=== PATIENT | female | born 1995 | race American Indian/Alaskan Native ===

== ENCOUNTER 2017-02-15 06:48 | Inpatient (IN) | payer MEDICAID ==
--- NOTE | 2017-02-15 09:22 | Ultrasound Report ---
OB LIMITED INDICATION: Leaking fluid. COMPARISON: None similar at this institution. TECHNIQUE: Transabdominal grayscale ultrasound with Doppler interrogation. Gestation: Street Position: Cephalic Amniotic Fluid: Decreased (< 7 cm) BRYSON = 5.5 cm Heart Rate: 125 BPM
[2017-02-15] MEDS ORDERED: ePHEDrine SULFATE IV PRN (11:00)
[2017-02-15] MEDS ORDERED: BRETHINE IVP PRN (11:00)
[2017-02-15] MEDS ORDERED: XYLOCAINE 2% INFILTRATI ONE (11:00)
[2017-02-15] MEDS ORDERED: STADOL IV PRN (11:00)
[2017-02-15] MEDS ORDERED: PITOCin/NS 30 UNIT/500ML 30 UNITS/500 ML BAG IV SCH (11:00)
[2017-02-15] MEDS ORDERED: PITOCin/NS 20 UNIT/1000ML DRIP 20 UNITS/1,000 ML BAG IV SCH (11:00)
[2017-02-15] MEDS ORDERED: MINERAL OIL PO PRN (11:00)
[2017-02-15] MEDS ORDERED: LACTATED RINGERS 1,000 ML IV SCH (11:00)
[2017-02-15] MEDS ORDERED: ZOFRAN IV PRN (11:24)
[2017-02-15 11:30] LABS: Hematocrit 36.8 % (30.3-42.9); Hemoglobin 12.2 gm/dl (10.1-14.3); Mean Corpuscular HGB Conc 33 % (30-34); Mean Corpuscular Hemoglobin 30 pg (28-32); Mean Corpuscular Volume 89 fl (79-97); Red Blood Count 4.13 M/mm3 (3.65-5.03); Red Cell Distribution Width 16.8 % (13.2-15.2); White Blood Count 8.7 K/mm3 (4.5-11.0)
[2017-02-15] MEDS ORDERED: BRETHINE SUB-Q PRN (11:30)
--- NOTE | 2017-02-15 11:32 | History and Physical Report ---
History of Present Illness Date of examination: 02/15/17 Date of admission: 02/15/17 06:49 Chief complaint: patient came to triage with c/o ctx and leaking x2 days. no amniotic fluid noted from vagina, BRYSON low @5.5cms, plans for admission and IOL. History of present illness: EDC Confirmation: 02/15/2017 Past History : 1 Term Births: 0 Premature Births: 0 Living Children: 0 Para: 0 Mult. Births: 0 Prev : 0 Prev. attempt? 0 Aborta: 0 Elect. Ab: 0 Spont. Ab: 0 Ectopics: 0 Past Medical History: Asthma Past Surgical History: Negative Past Surgical History Family History Summary: Other family member - Has No Family History of Ovarvian Cancer - Entered On: Other family member - Has No Family History of Colon Cancer - Entered On: 2016 Other family member - Has Family History of Hypertension - Entered On: 09/11/2016 Other family member - Has Family History of Diabetes - Entered On: 09/11/2016 Other family member - Has Family History Breast Cancer - Entered On: 09/11/2016 Social History: Patient is single unemployed Risk Factors: Smoked Tobacco Use: Never smoker Drug use: yes Substance: marijuana Alcohol use: yes Drinks per day: social Dietary Counseling: pn yes Past Medical History 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 of genital herpes: no Partner hx. of genital herpes: no Genetic History Congenital Heart Defect: Mom: no Dad: no [place] Disease: Mom: no Dad: no Thalassemia Mom: no Dad: no Neural Tube Defect Mom: no Dad: no Down's Syndrome Mom: no Dad: no Justin-Sachs Mom: no Dad: no Sickle Cell Disease/Trait Mom: no Dad: no Hemophilia Mom: no Dad: no Muscular Dystrophy Mom: no Dad: no Cystic Fibrosis Mom: no Dad: no [place] Chorea Mom: no Dad: no Mental Retardation Mom: no Dad: no Fragile X Mom: no Dad: no Other Genetic/Chromosomal Disorder Mom: no Dad: no Child w/other defect Mom: no Dad: no Enviromental Exposures Xray Exposure: no Medication, drug, or alcohol use since LMP: no Chemical/Other Exposure: no Exposure to Cat Liter: no Hx of Parvovirus (Fifth Disease): no Active Medications (reviewed today): FORMULA 27-1 MG ORAL TABS ( VIT-FE FUMARATE-FA) 1 po q day as directed Current Allergies (reviewed today): No known allergies Past History Past Medical History: asthma Past Surgical History: no surgical history - Obstetrical History Expected Date of Delivery: 02/15/17 Actual Gestation: 40 Week(s) 0 Day(s) : 1 Para: 0 Hx # Term Pregnancies: 0 Number of Pregnancies: 0 Spontaneous Abortions: 0 Induced : 0 Number of Living Children: 0 Medications and Allergies Allergies Allergy/AdvReac Type Severity Reaction Status Date / Time No Known Allergies Allergy Verified 02/15/17 10:40 Home Medications Medication Instructions Recorded Confirmed Last Taken Type No Known Home Medications [No 02/15/17 02/15/17 Unknown History Reported Home Medications] Active Meds: Active Medications Butorphanol Tartrate (Stadol) 2 mg IV Q2H PRN PRN Reason: Pain , Severe (7-10) Ephedrine Sulfate (Ephedrine Sulfate) 10 mg IV Q2M PRN PRN Reason: Hypotension Stop: 02/16/17 10:59 Fentanyl (Sublimaze) 100 mcg IV Q2H PRN PRN Reason: Labor Pain Lactated Ringer's (Lactated Ringers) 1,000 mls @ 125 mls/hr IV DIRECT ADIA Oxytocin/Sodium Chloride (Pitocin/Ns 20 Unit/1000ml Drip) 20 units in 1,000 mls @ 125 mls/hr IV DIRECT ADIA Oxytocin/Sodium Chloride (Pitocin/Ns 30 Unit/500ml) 30 units in 500 mls @ 1 mls /hr IV TITR ADIA; 1 MILLIUNITS/MIN PRN Reason: Protocol Mineral Oil (Mineral Oil) 30 ml PO QHS PRN PRN Reason: Constipation Terbutaline Sulfate (Brethine) 0.25 mg SUB-Q ONCE PRN PRN Reason: Hyperstimulation/Hypertonicity Stop: 02/16/17 11:29 Terbutaline Sulfate (Brethine) 0.25 mg IVP ONCE PRN PRN Reason: Hyperstimulation/Hypertonicity Stop: 02/16/17 10:59 Review of Systems All systems: negative - Vital Signs Vital signs: Vital Signs Pulse BP 82 129/84 02/15/17 07:04 02/15/17 07:04 Temp Pulse Resp BP Pulse Ox 83 129/84 97 02/15/17 11:23 02/15/17 07:04 02/15/17 11:23 - Physical Exam Breasts: Positive: normal Cardiovascular: Regular rate Lungs: Positive: Clear to auscultation, Normal air movement Abdomen: Positive: normal appearance, soft, normal bowel sounds Genitourinary (Female): Positive: normal external genitalia, normal perenium Vulva: both: normal Vagina: Positive: normal moisture (Neg Pooling, Neg Ferning ) Uterus: Positive: normal size, normal contour Anus/Rectum: Positive: normal perianal skin Extremities: Positive: normal - Obstetrical FHR: auscultation normal, category 1 Uterine Contraction Monitor Mode: External Cervical Dilatation: 1 Cervical Effacement Percentage: 50 station: -2 Uterine Contraction Frequency (min): irregular Uterine Contraction Pattern: Irregular Uterine Tone Measurement Phase: Resting Results Result Diagrams: 02/15/17 10:45 All other labs normal. Assessment and Plan 21y/o @ 40 weeks, Oligohydramnios - BRYSON 5.5cm (Neg pooling on spec exam, also neg fern). dr. Call consulted, Plan for serial IOL with cervidil. orders in chart, discussed plan of care with patient and family. All questions addressed. - Patient Problems (1) 40 weeks gestation of Current Visit: Yes Status: Acute (2) Oligohydramnios in powers in third trimester Current Visit: Yes Status: Acute
[2017-02-15 11:42] LABS: Platelet Count 137 K/mm3 (140-440)
[2017-02-15] MEDS ORDERED: CERVIDIL VG ONE (13:00)
[2017-02-15] MEDS: SUBLIMAZE IV PRN (21:11)
[2017-02-16] MEDS: LACTATED RINGERS 1,000 ML IV SCH ×4 (01:38→17:28)
[2017-02-16] MEDS ORDERED: AMBIEN PO PRN (02:42)
[2017-02-16] MEDS ORDERED: PITOCin/NS 30 UNIT/500ML 30 UNITS/500 ML BAG IV SCH (03:00)
[2017-02-16] MEDS ORDERED: PITOCin/NS 30 UNIT/500ML 30,000 MILLIUNITS/500 ML BAG IV ONE (07:10)
--- NOTE | 2017-02-16 09:50 | Progress Note ---
Assessment and Plan - Patient Problems (1) 40 weeks gestation of Current Visit: Yes Status: Acute Plan to address problem: Patient did not tolerate exam well, pelvis difficult to assess appropriately however seems to be adequate for EFW of ~6-7#. Plan of care explained, questions answered, will start IVF bolus for epidural and will pitocin. Patient voiced understanding and agrees with plan of care. (2) Oligohydramnios in powers in third trimester Current Visit: Yes Status: Acute Subjective - Subjective Date of service: 02/16/17 Principal diagnosis: IUP@40weeks; oligohydramnios, induction Interval history: 21YOF recieved cervidil last pm, however had tachysystole, cervidil removed and she was started on low dose pitocin overnight, this am no complaint , she has showered and eaten, +fm, no UC's, leaking or bleeding. Patient reports: movement normal, no new complaints, no loss of fluid, no vaginal bleeding, no contractions Objective - Vital Signs Vital Signs: Vital Signs - 12hr 02/15/17 02/15/17 02/15/17 22:44 23:13 23:17 Temperature 99 F Pulse Rate 83 75 75 Respiratory 20 Rate Blood Pressure 119/88 122/85 122/85 O2 Sat by Pulse Oximetry 02/15/17 02/15/17 02/15/17 23:19 23:24 23:25 Temperature Pulse Rate 90 99 H 104 H Respiratory Rate Blood Pressure O2 Sat by Pulse 96 95 94 Oximetry 02/15/17 02/15/17 02/15/17 23:29 23:34 23:39 Temperature Pulse Rate 103 H 112 H 106 H Respiratory Rate Blood Pressure O2 Sat by Pulse 95 95 96 Oximetry 02/15/17 02/15/17 02/15/17 23:44 23:49 23:54 Temperature Pulse Rate 99 H 102 H 98 H Respiratory Rate Blood Pressure O2 Sat by Pulse 96 96 96 Oximetry 02/15/17 02/16/17 02/16/17 23:59 00:07 00:27 Temperature Pulse Rate 104 H 79 67 Respiratory Rate Blood Pressure O2 Sat by Pulse 96 0 L 77 L Oximetry 02/16/17 02/16/17 02/16/17 00:28 00:33 00:38 Temperature Pulse Rate 92 H 85 89 Respiratory Rate Blood Pressure O2 Sat by Pulse 100 97 95 Oximetry 02/16/17 02/16/17 02/16/17 00:41 00:43 00:48 Temperature Pulse Rate 90 90 96 H Respiratory Rate Blood Pressure O2 Sat by Pulse 94 95 96 Oximetry 02/16/17 02/16/17 02/16/17 00:53 00:58 01:03 Temperature Pulse Rate 94 H 90 91 H Respiratory Rate Blood Pressure O2 Sat by Pulse 95 95 95 Oximetry 02/16/17 02/16/17 02/16/17 01:07 01:13 01:18 Temperature Pulse Rate 35 L 94 H 89 Respiratory Rate Blood Pressure O2 Sat by Pulse 78 L 99 98 Oximetry 02/16/17 02/16/17 02/16/17 01:23 01:28 01:33 Temperature Pulse Rate 86 81 86 Respiratory Rate Blood Pressure O2 Sat by Pulse 98 98 99 Oximetry 02/16/17 02/16/17 02/16/17 01:38 01:43 01:48 Temperature Pulse Rate 82 82 83 Respiratory Rate Blood Pressure O2 Sat by Pulse 98 98 98 Oximetry 02/16/17 02/16/17 02/16/17 01:53 01:57 01:58 Temperature Pulse Rate 75 80 91 H Respiratory Rate Blood Pressure 118/79 O2 Sat by Pulse 98 95 Oximetry 02/16/17 02/16/17 02/16/17 02:03 02:08 02:45 Temperature 98.3 F Pulse Rate 89 90 90 Respiratory 20 Rate Blood Pressure 118/79 O2 Sat by Pulse 96 96 Oximetry 02/16/17 02/16/17 02/16/17 07:55 08:00 08:05 Temperature 97.6 F Pulse Rate 79 89 75 Respiratory 16 Rate Blood Pressure 105/65 O2 Sat by Pulse 97 96 96 Oximetry 02/16/17 02/16/17 02/16/17 08:10 09:23 09:28 Temperature Pulse Rate 81 99 H 103 H Respiratory Rate Blood Pressure O2 Sat by Pulse 97 97 98 Oximetry 02/16/17 02/16/17 09:31 09:33 Temperature Pulse Rate 91 H 97 H Respiratory Rate Blood Pressure O2 Sat by Pulse 94 95 Oximetry - Exam Breasts: deferred Cardiovascular: Regular rate Lungs: Normal air movement Abdomen: Present: normal appearance Vulva: both: normal FHR: category 1 Uterine Contraction Monitor Mode: External Cervical Dilatation: 2.5 (EFW 3500g, ) Cervical Effacement Percentage: 80 station: -2 Uterine Contraction Pattern: Irregular Extremities: normal Deep Tendon Reflex Grade: Normal +2 - Labs Labs: Abnormal Labs 02/15/17 10:45 RDW 16.8 H Plt Count 137 L Laboratory Results - last 24 hr 02/15/17 02/15/17 02/15/17 10:45 10:45 10:45 WBC 8.7 RBC 4.13 Hgb 12.2 Hct 36.8 MCV 89 MCH 30 MCHC 33 RDW 16.8 H Plt Count 137 L RPR Nonreactive Blood Type O POSITIVE Antibody Screen TNR JAMIN Antibody Screen Negative
[2017-02-16] MEDS: SUBLIMAZE IV PRN (13:17)
[2017-02-16] MEDS ORDERED: ePHEDrine SULFATE ONE (14:12)
[2017-02-16] MEDS ORDERED: fentaNYL-BUPIV 2 MCG/ML-0.125% 200 MCG/100 ML BAG EPIDURAL ONE (14:13)
--- NOTE | 2017-02-16 14:14 | Progress Note ---
Assessment and Plan - Patient Problems (1) 40 weeks gestation of Current Visit: Yes Status: Acute Plan to address problem: Continue expectant management (2) Oligohydramnios in powers in third trimester Current Visit: Yes Status: Acute Subjective - Subjective Date of service: 02/16/17 Principal diagnosis: IUP@40weeks; oligohydramnios, induction Patient reports: new complaints, movement normal, contractions, no loss of fluid, no vaginal bleeding Objective - Vital Signs Vital Signs: Vital Signs - 12hr 02/16/17 02/16/17 02/16/17 02:45 07:55 08:00 Temperature 98.3 F 97.6 F Pulse Rate 90 79 89 Respiratory 20 16 Rate Blood Pressure 118/79 105/65 O2 Sat by Pulse 97 96 Oximetry 02/16/17 02/16/17 02/16/17 08:05 08:10 09:23 Temperature Pulse Rate 75 81 99 H Respiratory Rate Blood Pressure O2 Sat by Pulse 96 97 97 Oximetry 02/16/17 02/16/17 02/16/17 09:28 09:31 09:33 Temperature Pulse Rate 103 H 91 H 97 H Respiratory Rate Blood Pressure O2 Sat by Pulse 98 94 95 Oximetry 02/16/17 02/16/17 02/16/17 13:17 13:36 13:41 Temperature Pulse Rate 82 81 Respiratory 18 Rate Blood Pressure O2 Sat by Pulse 97 98 Oximetry 02/16/17 02/16/17 02/16/17 13:46 13:51 13:56 Temperature Pulse Rate 102 H 82 72 Respiratory Rate Blood Pressure O2 Sat by Pulse 97 98 97 Oximetry 02/16/17 02/16/17 14:01 14:06 Temperature Pulse Rate 81 71 Respiratory Rate Blood Pressure O2 Sat by Pulse 97 98 Oximetry - Exam FHR: category 2 (s/p fentanyl) Cervical Dilatation: 3 (After verbal consent was obtained, AROM performed with small amount of clear fluid, IUPC and ISE placed w/o difficulty) Cervical Effacement Percentage: 80 station: -2 Uterine Contraction Pattern: Irregular - Labs Labs: Abnormal Labs 02/15/17 10:45 RDW 16.8 H Plt Count 137 L
[2017-02-16] MEDS ORDERED: NARCAN 2 MG/2 ML IV PRN (14:44)
[2017-02-16] MEDS ORDERED: ePHEDrine SULFATE IV PRN (14:44)
--- NOTE | 2017-02-16 14:46 | Anesthesia Consultation ---
Anesthesia Consult and Med Hx Date of service: 02/16/17 - Airway Anesthetic Teeth Evaluation: Good ROM Head & Neck: Adequate Mental/Hyoid Distance: Adequate Intubation Access Assessment: Probably Good - Pulmonary Exam CTA: Yes - Cardiac Exam Cardiac Exam: RRR - Pre-Operative Health Status ASA Pre-Surgery Classification: ASA3, Emergency Proposed Anesthetic Plan: Epidural, Spinal - Pulmonary Hx Asthma: Yes COPD: No Hx Pneumonia: No - Cardiovascular System Hx Hypertension: No - Central Nervous System Hx Seizures: No Hx Psychiatric Problems: No - Endocrine Hx Renal Disease: No Hx End Stage Renal Disease: No Hx Hypothyroidism: No Hx Hyperthyroidism: No - Hematic Hx Anemia: No Hx Sickle Cell Disease: No - Other Systems Hx Alcohol Use: No
[2017-02-16] MEDS ORDERED: fentaNYL-BUPIV 2 MCG/ML-0.125% 200 MCG/100 ML BAG EPIDURAL SCH (15:00)
--- NOTE | 2017-02-16 15:52 | Progress Note ---
Assessment and Plan - Patient Problems (1) 40 weeks gestation of Current Visit: Yes Status: Acute Plan to address problem: Continue expectant management (2) Oligohydramnios in powers in third trimester Current Visit: Yes Status: Acute Subjective - Subjective Date of service: 02/16/17 Principal diagnosis: IUP@40weeks; oligohydramnios, induction Interval history: . Patient reports: movement normal, no new complaints, no loss of fluid, no vaginal bleeding, no contractions Objective - Vital Signs Vital Signs: Vital Signs - 12hr 02/16/17 02/16/17 02/16/17 07:55 08:00 08:05 Temperature 97.6 F Pulse Rate 79 89 75 Respiratory 16 Rate Blood Pressure 105/65 O2 Sat by Pulse 97 96 96 Oximetry 02/16/17 02/16/17 02/16/17 08:10 09:23 09:28 Temperature Pulse Rate 81 99 H 103 H Respiratory Rate Blood Pressure O2 Sat by Pulse 97 97 98 Oximetry 02/16/17 02/16/17 02/16/17 09:31 09:33 13:17 Temperature Pulse Rate 91 H 97 H Respiratory 18 Rate Blood Pressure O2 Sat by Pulse 94 95 Oximetry 02/16/17 02/16/17 02/16/17 13:36 13:41 13:46 Temperature Pulse Rate 82 81 102 H Respiratory Rate Blood Pressure O2 Sat by Pulse 97 98 97 Oximetry 02/16/17 02/16/17 02/16/17 13:51 13:56 14:01 Temperature Pulse Rate 82 72 81 Respiratory Rate Blood Pressure O2 Sat by Pulse 98 97 97 Oximetry 02/16/17 02/16/17 02/16/17 14:06 14:11 14:20 Temperature Pulse Rate 71 77 88 Respiratory Rate Blood Pressure O2 Sat by Pulse 98 100 100 Oximetry 02/16/17 02/16/17 02/16/17 14:22 14:25 14:28 Temperature Pulse Rate 88 80 74 Respiratory Rate Blood Pressure 145/89 131/90 O2 Sat by Pulse 99 82 L Oximetry 02/16/17 02/16/17 02/16/17 14:35 14:40 14:42 Temperature Pulse Rate 71 68 69 Respiratory Rate Blood Pressure O2 Sat by Pulse 98 98 75 L Oximetry 02/16/17 02/16/17 02/16/17 14:43 14:45 14:50 Temperature Pulse Rate 77 68 72 Respiratory Rate Blood Pressure 119/81 O2 Sat by Pulse 98 99 Oximetry 02/16/17 02/16/17 02/16/17 14:55 14:58 15:00 Temperature Pulse Rate 70 68 Respiratory Rate Blood Pressure 124/84 O2 Sat by Pulse 99 99 Oximetry 02/16/17 02/16/17 02/16/17 15:05 15:10 15:13 Temperature Pulse Rate 66 75 75 Respiratory Rate Blood Pressure 131/85 O2 Sat by Pulse 98 99 Oximetry 02/16/17 02/16/17 02/16/17 15:15 15:20 15:25 Temperature Pulse Rate 71 65 66 Respiratory Rate Blood Pressure O2 Sat by Pulse 99 98 99 Oximetry 02/16/17 02/16/17 02/16/17 15:28 15:30 15:44 Temperature Pulse Rate 67 70 67 Respiratory Rate Blood Pressure 135/82 130/89 O2 Sat by Pulse 98 Oximetry - Exam Breasts: deferred Abdomen: Present: normal appearance FHR: category 2 (pt to left side with O2 placed) Uterine Contraction Monitor Mode: Internal Uterine Contraction Pattern: Regular - Labs Labs: Abnormal Labs 02/15/17 10:45 RDW 16.8 H Plt Count 137 L
--- NOTE | 2017-02-16 16:57 | Progress Note ---
Assessment and Plan - Patient Problems (1) 40 weeks gestation of Current Visit: Yes Status: Acute Plan to address problem: +accels with scalp stimulation, will decrease pitocin to 6 and observe closely (2) Oligohydramnios in powers in third trimester Current Visit: Yes Status: Acute Subjective - Subjective Date of service: 02/16/17 Principal diagnosis: IUP@40weeks; oligohydramnios, induction Interval history: . Patient reports: movement normal, no new complaints, no loss of fluid, no vaginal bleeding, no contractions Objective - Vital Signs Vital Signs: Vital Signs - 12hr 02/16/17 02/16/17 02/16/17 07:55 08:00 08:05 Temperature 97.6 F Pulse Rate 79 89 75 Respiratory 16 Rate Blood Pressure 105/65 O2 Sat by Pulse 97 96 96 Oximetry 02/16/17 02/16/17 02/16/17 08:10 09:23 09:28 Temperature Pulse Rate 81 99 H 103 H Respiratory Rate Blood Pressure O2 Sat by Pulse 97 97 98 Oximetry 02/16/17 02/16/17 02/16/17 09:31 09:33 13:17 Temperature Pulse Rate 91 H 97 H Respiratory 18 Rate Blood Pressure O2 Sat by Pulse 94 95 Oximetry 02/16/17 02/16/17 02/16/17 13:36 13:41 13:46 Temperature Pulse Rate 82 81 102 H Respiratory Rate Blood Pressure O2 Sat by Pulse 97 98 97 Oximetry 02/16/17 02/16/17 02/16/17 13:51 13:56 14:01 Temperature Pulse Rate 82 72 81 Respiratory Rate Blood Pressure O2 Sat by Pulse 98 97 97 Oximetry 02/16/17 02/16/17 02/16/17 14:06 14:11 14:20 Temperature Pulse Rate 71 77 88 Respiratory Rate Blood Pressure O2 Sat by Pulse 98 100 100 Oximetry 02/16/17 02/16/17 02/16/17 14:22 14:25 14:28 Temperature Pulse Rate 88 80 74 Respiratory Rate Blood Pressure 145/89 131/90 O2 Sat by Pulse 99 82 L Oximetry 02/16/17 02/16/17 02/16/17 14:35 14:40 14:42 Temperature Pulse Rate 71 68 69 Respiratory Rate Blood Pressure O2 Sat by Pulse 98 98 75 L Oximetry 02/16/17 02/16/17 02/16/17 14:43 14:45 14:50 Temperature Pulse Rate 77 68 72 Respiratory Rate Blood Pressure 119/81 O2 Sat by Pulse 98 99 Oximetry 02/16/17 02/16/17 02/16/17 14:55 14:58 15:00 Temperature Pulse Rate 70 68 Respiratory Rate Blood Pressure 124/84 O2 Sat by Pulse 99 99 Oximetry 02/16/17 02/16/17 02/16/17 15:05 15:10 15:13 Temperature Pulse Rate 66 75 75 Respiratory Rate Blood Pressure 131/85 O2 Sat by Pulse 98 99 Oximetry 02/16/17 02/16/17 02/16/17 15:15 15:20 15:25 Temperature Pulse Rate 71 65 66 Respiratory Rate Blood Pressure O2 Sat by Pulse 99 98 99 Oximetry 02/16/17 02/16/17 02/16/17 15:28 15:30 15:44 Temperature Pulse Rate 67 70 67 Respiratory Rate Blood Pressure 135/82 130/89 O2 Sat by Pulse 98 Oximetry 02/16/17 02/16/17 02/16/17 15:58 16:14 16:29 Temperature Pulse Rate 62 62 73 Respiratory Rate Blood Pressure 135/83 138/84 133/95 O2 Sat by Pulse Oximetry 02/16/17 02/16/17 02/16/17 16:32 16:44 16:47 Temperature Pulse Rate 59 L 68 77 Respiratory Rate Blood Pressure 121/73 O2 Sat by Pulse 78 L 89 Oximetry 02/16/17 16:52 Temperature Pulse Rate 73 Respiratory Rate Blood Pressure O2 Sat by Pulse 100 Oximetry - Exam FHR: category 2 Uterine Contraction Monitor Mode: External Cervical Dilatation: 6.5 Cervical Effacement Percentage: 90 station: +1 Uterine Contraction Pattern: Regular - Labs Labs: Abnormal Labs 02/15/17 10:45 RDW 16.8 H Plt Count 137 L
[2017-02-16] MEDS ORDERED: ANCEF/STERILE WATER 2 GM/20 ML 2 GM/20 ML SYRINGE IV ONE (18:39)
--- NOTE | 2017-02-16 18:40 | Progress Note ---
Assessment and Plan - Patient Problems (1) 40 weeks gestation of Current Visit: Yes Status: Acute (2) Oligohydramnios in powers in third trimester Current Visit: Yes Status: Acute Subjective - Subjective Date of service: 02/16/17 Principal diagnosis: IUP@40weeks; oligohydramnios, induction Interval history: No cervical change/+1 with late decelerations, recommend proceeding with c/ s ve continued FRAN.Risks associated with both explained: deterioration of status with poor outcome and/or shoulder dystocia with possible permanent or temporary injury to extremities or brain damage, also discussed risk associated with delivery including but not limited to bleeding, infection, injury to bowel bladder, or major vascular injury, as well as the possibility that she may require C-sections with subsequent pregnancies. Questions were encouraged and answered, patient voiced understanding and desires to proceed with delivery, consents were reviewed and signed. Patient reports: movement normal, no new complaints, no loss of fluid, no vaginal bleeding, no contractions Objective - Vital Signs Vital Signs: Vital Signs - 12hr 02/16/17 02/16/17 02/16/17 07:55 08:00 08:05 Temperature 97.6 F Pulse Rate 79 89 75 Respiratory 16 Rate Blood Pressure 105/65 O2 Sat by Pulse 97 96 96 Oximetry 02/16/17 02/16/17 02/16/17 08:10 09:23 09:28 Temperature Pulse Rate 81 99 H 103 H Respiratory Rate Blood Pressure O2 Sat by Pulse 97 97 98 Oximetry 02/16/17 02/16/17 02/16/17 09:31 09:33 13:17 Temperature Pulse Rate 91 H 97 H Respiratory 18 Rate Blood Pressure O2 Sat by Pulse 94 95 Oximetry 02/16/17 02/16/17 02/16/17 13:36 13:41 13:46 Temperature Pulse Rate 82 81 102 H Respiratory Rate Blood Pressure O2 Sat by Pulse 97 98 97 Oximetry 02/16/17 02/16/17 02/16/17 13:51 13:56 14:01 Temperature Pulse Rate 82 72 81 Respiratory Rate Blood Pressure O2 Sat by Pulse 98 97 97 Oximetry 02/16/17 02/16/17 02/16/17 14:06 14:11 14:20 Temperature Pulse Rate 71 77 88 Respiratory Rate Blood Pressure O2 Sat by Pulse 98 100 100 Oximetry 02/16/17 02/16/17 02/16/17 14:22 14:25 14:28 Temperature Pulse Rate 88 80 74 Respiratory Rate Blood Pressure 145/89 131/90 O2 Sat by Pulse 99 82 L Oximetry 02/16/17 02/16/17 02/16/17 14:35 14:40 14:42 Temperature Pulse Rate 71 68 69 Respiratory Rate Blood Pressure O2 Sat by Pulse 98 98 75 L Oximetry 02/16/17 02/16/17 02/16/17 14:43 14:45 14:50 Temperature Pulse Rate 77 68 72 Respiratory Rate Blood Pressure 119/81 O2 Sat by Pulse 98 99 Oximetry 02/16/17 02/16/17 02/16/17 14:55 14:58 15:00 Temperature Pulse Rate 70 68 Respiratory Rate Blood Pressure 124/84 O2 Sat by Pulse 99 99 Oximetry 02/16/17 02/16/17 02/16/17 15:05 15:10 15:13 Temperature Pulse Rate 66 75 75 Respiratory Rate Blood Pressure 131/85 O2 Sat by Pulse 98 99 Oximetry 02/16/17 02/16/17 02/16/17 15:15 15:20 15:25 Temperature Pulse Rate 71 65 66 Respiratory Rate Blood Pressure O2 Sat by Pulse 99 98 99 Oximetry 02/16/17 02/16/17 02/16/17 15:28 15:30 15:44 Temperature Pulse Rate 67 70 67 Respiratory Rate Blood Pressure 135/82 130/89 O2 Sat by Pulse 98 Oximetry 02/16/17 02/16/17 02/16/17 15:58 16:14 16:29 Temperature Pulse Rate 62 62 73 Respiratory Rate Blood Pressure 135/83 138/84 133/95 O2 Sat by Pulse Oximetry 02/16/17 02/16/17 02/16/17 16:32 16:44 16:47 Temperature Pulse Rate 59 L 68 77 Respiratory Rate Blood Pressure 121/73 O2 Sat by Pulse 78 L 89 Oximetry 02/16/17 02/16/17 02/16/17 16:52 16:57 16:59 Temperature Pulse Rate 73 92 H 68 Respiratory Rate Blood Pressure 125/84 O2 Sat by Pulse 100 99 Oximetry 02/16/17 02/16/17 02/16/17 17:02 17:07 17:12 Temperature Pulse Rate 66 63 74 Respiratory Rate Blood Pressure O2 Sat by Pulse 100 100 100 Oximetry 02/16/17 02/16/17 02/16/17 17:13 17:17 17:22 Temperature Pulse Rate 69 69 68 Respiratory Rate Blood Pressure 134/84 O2 Sat by Pulse 100 100 Oximetry 02/16/17 02/16/17 02/16/17 17:27 17:29 17:32 Temperature Pulse Rate 72 66 69 Respiratory Rate Blood Pressure 135/87 O2 Sat by Pulse 100 100 Oximetry 02/16/17 02/16/17 02/16/17 17:37 17:42 17:44 Temperature Pulse Rate 70 71 72 Respiratory Rate Blood Pressure 144/91 O2 Sat by Pulse 99 99 Oximetry 02/16/17 02/16/17 02/16/17 17:47 17:52 17:57 Temperature Pulse Rate 78 84 80 Respiratory Rate Blood Pressure O2 Sat by Pulse 99 97 97 Oximetry 02/16/17 02/16/17 02/16/17 17:58 18:02 18:07 Temperature Pulse Rate 76 78 77 Respiratory Rate Blood Pressure 145/89 O2 Sat by Pulse 100 98 Oximetry 02/16/17 02/16/17 02/16/17 18:12 18:13 18:17 Temperature Pulse Rate 76 76 82 Respiratory Rate Blood Pressure 145/93 O2 Sat by Pulse 98 99 Oximetry 02/16/17 02/16/17 02/16/17 18:22 18:23 18:27 Temperature Pulse Rate 84 86 88 Respiratory Rate Blood Pressure O2 Sat by Pulse 99 86 100 Oximetry 02/16/17 18:29 Temperature Pulse Rate 75 Respiratory Rate Blood Pressure 132/90 O2 Sat by Pulse Oximetry - Labs Labs: Abnormal Labs 02/15/17 10:45 RDW 16.8 H Plt Count 137 L
[2017-02-16] MEDS ORDERED: BICITRA ONE (18:43)
[2017-02-16] MEDS ORDERED: PEPCID IV ONE ×2 (18:44→18:47)
[2017-02-16] MEDS ORDERED: REGLAN ONE (18:44)
[2017-02-16] MEDS ORDERED: NACL 0.9% IR ONE (19:22)
[2017-02-16] MEDS ORDERED: WATER FOR IRRIG STERILE IR ONE (19:22)
[2017-02-16] MEDS ORDERED: XYLOCAINE MPF 2% ONE (19:37)
[2017-02-16] MEDS ORDERED: VERSED ONE (19:37)
[2017-02-16] MEDS ORDERED: SUBLIMAZE ONE (19:42)
[2017-02-16] MEDS ORDERED: METHERGINE IM ONE (19:43)
[2017-02-16] MEDS ORDERED: MORPHINE ONE (19:51)
[2017-02-16] MEDS ORDERED: NARCAN 0.4 MG/1 ML IV PRN ×2 (20:24→22:04)
[2017-02-16] MEDS ORDERED: DILAUDID IV PRN ×2 (20:24)
--- NOTE | 2017-02-16 21:30 | Post Operative Note ---
Pre-op diagnosis: intolerance to labor Post-op diagnosis: same Anesthesia: epidural Surgeon: SO RIVERA Estimated blood loss: other Pathology: none Condition: stable Disposition: PACU
--- NOTE | 2017-02-16 21:40 | Operative Report ---
Operative Report Operative Report: Date of procedure: 02/16/2017 Pre-operative diagnosis: 1. Intrauterine at 40 weeks 2. Oligohydramnios 3. intolerance to labor 4. Failure to dilate Post-operative diagnosis: 1. Intrauterine at 40 weeks 2. Oligohydramnios 3. intolerance to labor 4. Failure to dilate Procedure name(s): Low transverse section Surgeon: Olamide Smith MD Candle Wicker: Jenni Lainez Anesthesia: Epidural EBL: 800 mL Anesthesiologist: Dr. Ruvalcaba Complications: None Findings: Live born male infant. Weight 7 lbs. 14 oz. Apgars 8 at 1 minute 9 at 5 minutes. Grossly normal uterus tubes and ovaries. Stable hematoma was noted on the right edge of the uterine incision. Procedure: After risks, benefits, and complications and alternatives and consequences, were discussed with patient, and she voiced her understanding and desired to proceed. Patient was taken to the OR, where epidural anesthesia was bolused. She was then placed in the left lateral tilt position, and prepped and draped in the usual sterile fashion. After timeout was performed, and an appropriate level of anesthesia was noted, a Pfannenstiel incision was made and extended to the fascia. The fascia was incised and extended in a lateral direction. The overlying fascia was sharply dissected away from the underlying rectus muscles in the superior-inferior direction. The midline was entered bluntly. The vesicouterine fold was incised and with blunt and sharp dissection the bladder flap was created. A transverse incision was made in the lower uterine segment and extended in the superior lateral direction with finger fractionation. Clear fluid was noted. The infant was delivered from the cephalic position.The cord was doubly clamped and cut. The infant's mouth and nose were bulb suctioned. And the was given to the resuscitation team present. The placenta was manually extracted. The uterus was exteriorized and cleaned any products of conception and placental tissue. The incision was reapproximated using 0 Vicryl in a running interlocking stitch. Further suture of 0 Vicryl in interrupted [id number] was placed for hemostasis. Grossly normal tubes and ovaries were noted. Uterine atony was noted and the patient was given a bolus of IV Pitocin as usual as as well as a dose of Methergine 0.2 mg IM by anesthesia. The hematoma in the anterior edge of the incision was noted and observed. Once the hematoma appeared to be stable with no further expansion and hemostasis was noted, the uterus was allowed back into the pelvic cavity. The pelvis was irrigated with warm normal saline. Attention was turned back to the right aspect of the incision and operative field again the hematoma appeared to be stable to further assure stability the uterus was exteriorized again and the posterior aspect of the uterus was visualizedwith a hematoma was noted. The uterus was allowed back into the pelvic cavity. Once hemostasis was noted, Surgicel was applied to the anterior surface of the incision. Once hemostasis was noted, Interceed was applied to the anterior aspect of the uterus for adhesion prevention. Once hemostasis was noted, attention was turned to the rectus muscles. The muscles were approximated using 0 Vicryl interrupted fashion. Once hemostasis was noted , the fascia was reapproximated using 0 Vicryl in a simple running stitch. Once hemostasis was noted, the incision was irrigated with normal saline. The incision was then reapproximated using 4-0 Vicryl on a Pepito needle in a subcuticular manner. Patient tolerated the procedure well she was taken to recovery room in stable condition. Blood-tinged urine was noted at the beginning of the procedure which had cleared at the end of the procedure. Counts were correct 3
[2017-02-16] MEDS ORDERED: D5LR 1,000 ML IV SCH (22:04)
[2017-02-16] MEDS ORDERED: PITOCin/NS 20 UNIT/1000ML DRIP 20 UNITS/1,000 ML BAG IV SCH (22:04)
[2017-02-16] MEDS ORDERED: MYLICON PO PRN (22:04)
[2017-02-16] MEDS ORDERED: MILK OF MAGNESIA PO PRN (22:04)
[2017-02-16] MEDS ORDERED: LANSINOH TP PRN (22:04)
[2017-02-16] MEDS ORDERED: SODIUM CHLORIDE FLUSH SYRINGE 10 ML IV PRN (22:04)
[2017-02-16] MEDS ORDERED: TYLENOL PR PRN (22:04)
[2017-02-16] MEDS ORDERED: TYLENOL PO PRN (22:04)
[2017-02-16] MEDS ORDERED: TUCKS PAD TP PRN (22:04)
[2017-02-16] MEDS: TORADOL IV PRN (22:53)
[2017-02-17] MEDS: ANCEF/NS 1 GM/50 ML 1 GM/50 ML BAG IV SCH ×2 (03:03→11:14)
[2017-02-17] MEDS: TORADOL IV PRN (06:13)
[2017-02-17 11:02] LABS: Hematocrit 25.5 % (30.3-42.9); Hemoglobin 8.7 gm/dl (10.1-14.3)
--- NOTE | 2017-02-17 11:15 | Progress Note ---
Subjective Date of service: 02/17/17 Principal diagnosis: IUP@40weeks; oligohydramnios, induction Interval history: Doing well. Pain controlled. Denies numbness or weakness. Had a mild headache that resolved. Discussed with patient to tell nurse if worsening headache. Objective - Constitutional Vitals: Vital Signs - 12hr 02/17/17 02/17/17 04:10 08:30 Temperature 99.2 F 98.9 F Pulse Rate 105 H 97 H Respiratory 18 19 Rate Blood Pressure 144/84 119/79 - Labs CBC & Chem 7: 02/15/17 10:45
[2017-02-17] MEDS: PERCOCET 5/325 PO PRN ×3 (11:17→23:56)
--- NOTE | 2017-02-17 13:01 | Progress Note ---
Assessment and Plan - Patient Problems (1) delivery delivered Current Visit: Yes Status: Acute Plan to address problem: Continue c/s pathway (2) Anemia Current Visit: Yes Status: Acute Qualifiers: Anemia type: A Iron deficiency anemia type: I Vitamin B12 deficiency anemia type: V Folate deficiency anemia type: F Bone marrow failure anemia type: B Hemolytic anemia type: H Other causes of anemia: acute posthemorrhagic Chronic kidney disease stage: C Qualified Code(s): D62 - Acute posthemorrhagic anemia Subjective - Subjective Date of service: 02/17/17 Principal diagnosis: POD#1 LTCS, intolerance to labor, fail to dilate, boy Interval history: Resting in bed, no c/o, minimal bleeding, scott being removed, Patient reports: appetite normal, pain well controlled, no flatus Objective - Vital Signs Latest vital signs: Vital Signs Temp Pulse Resp BP Pulse Ox 02/17/17 08:30 98.9 F 97 H 19 119/79 02/17/17 04:10 99.2 F 105 H 18 144/84 02/16/17 22:00 101.7 F H 109 H 18 137/81 02/16/17 21:20 110 H 15 124/80 98 02/16/17 21:16 114 H 12 117/62 99 02/16/17 21:10 111 H 17 124/70 98 02/16/17 21:06 110 H 13 97 02/16/17 21:00 110 H 23 99 02/16/17 20:56 105 H 11 L 98 02/16/17 20:50 103 H 31 H 99 02/16/17 20:46 105 H 27 H 98 02/16/17 20:40 94 H 27 H 98 02/16/17 20:36 107 H 24 98 02/16/17 20:32 22 02/16/17 20:30 116 H 12 100 02/16/17 20:26 118 H 13 95 02/16/17 20:20 99.1 F 131 H 25 H 97 02/16/17 20:16 145 H 21 97 02/16/17 19:07 84 100 02/16/17 19:02 74 100 02/16/17 18:59 73 146/83 02/16/17 18:57 72 100 02/16/17 18:52 76 100 02/16/17 18:47 71 100 08/05/17 18:43 84 128/83 08/05/17 18:42 88 100 08/05/17 18:37 80 99 08/05/17 18:32 78 100 08/05/17 18:29 75 132/90 08/05/17 18:27 88 100 08/05/17 18:23 86 86 08/05/17 18:22 84 99 08/05/17 18:17 82 99 08/05/17 18:13 76 145/93 08/05/17 18:12 76 98 08/05/17 18:07 77 98 08/05/17 18:02 78 100 08/05/17 17:58 76 145/89 08/05/17 17:57 80 97 08/05/17 17:52 84 97 08/05/17 17:47 78 99 08/05/17 17:44 72 144/91 08/05/17 17:42 71 99 08/05/17 17:37 70 99 08/05/17 17:32 69 100 08/05/17 17:29 66 135/87 08/05/17 17:27 72 100 08/05/17 17:22 68 100 08/05/17 17:17 69 100 08/05/17 17:13 69 134/84 08/05/17 17:12 74 100 08/05/17 17:07 63 100 08/05/17 17:02 66 100 08/05/17 16:59 68 125/84 08/05/17 16:57 92 H 99 08/05/17 16:52 73 100 08/05/17 16:47 77 89 08/05/17 16:44 68 121/73 08/05/17 16:32 59 L 78 L 08/05/17 16:29 73 133/95 08/05/17 16:14 62 138/84 08/05/17 15:58 62 135/83 08/05/17 15:44 67 130/89 08/05/17 15:30 70 98 08/05/17 15:28 67 135/82 08/05/17 15:25 66 99 08/05/17 15:20 65 98 08/05/17 15:15 71 99 08/05/17 15:13 75 131/85 08/05/17 15:10 75 99 08/05/17 15:05 66 98 08/05/17 15:00 68 99 02/16/17 14:58 124/84 02/16/17 14:55 70 99 02/16/17 14:50 72 99 02/16/17 14:45 68 98 02/16/17 14:43 77 119/81 02/16/17 14:42 69 75 L 02/16/17 14:40 68 98 02/16/17 14:35 71 98 02/16/17 14:28 74 131/90 82 L 02/16/17 14:25 80 99 02/16/17 14:22 88 145/89 02/16/17 14:20 88 100 02/16/17 14:11 77 100 02/16/17 14:06 71 98 02/16/17 14:01 81 97 02/16/17 13:56 72 97 02/16/17 13:51 82 98 02/16/17 13:46 102 H 97 02/16/17 13:41 81 98 02/16/17 13:36 82 97 02/16/17 13:17 18 Intake and Output 02/16/17 02/17/17 02/17/17 22:59 06:59 14:59 Intake Total 2400 290 120 Output Total 950 900 400 Balance 1450 -610 -280 Intake: IV 2400 50 ANCEF/NS 1 GM/50 ML 1 gm 50 In 50 ml @ 100 mls/hr IV Q8H [facility] Rx#:[id number] Lactated Ringers 1,000 ml 1000 @ 125 mls/hr IV DIRECT [facility] Rx#:[id number] Oral 240 120 Output: Urine 950 900 400 Indwelling Catheter 900 400 Uretheral (Scott) 400 Other: Total, Intake Amount 240 120 Total, Output Amount 900 400 Estimated Blood Loss 800 - Exam Breasts: Present: deferred Cardiovascular: Present: Regular rate Lungs: Present: Clear to auscultation, Normal air movement Abdomen: Present: normal appearance, soft, normal bowel sounds Uterus: Present: normal, firm, fundal height at umbilicus. Absent: tenderness Extremities: Present: normal. Absent: tenderness, edema Incision: Present: normal, dry, intact - Labs Labs: Abnormal lab results 02/17/17 Range/Units 10:10 Hgb 8.7 L D (10.1-14.3) gm/dl Hct 25.5 L D (30.3-42.9) %
[2017-02-17] MEDS ORDERED: FEOSOL PO SCH (14:00)
[2017-02-17] MEDS: MOTRIN PO PRN (17:02)
[2017-02-18] MEDS: MOTRIN PO PRN ×2 (05:02→12:36)
[2017-02-18] MEDS ORDERED: BOOSTRIX IM ONE (06:00)
--- NOTE | 2017-02-18 07:46 | Discharge Summary ---
Providers - Providers Date of Admission: 02/15/17 06:49 Date of discharge: 02/18/17 (pt desires d/c) Attending physician: SARAH CLARKE 02/16/17 22:04 Consult to Hydraulic Rubbish Compactor Mechanic [CONS] Routine Reason For Exam: Primary care physician: SARAH CLARKE Hospitalization Reason for admission: active labor Delivery: Procedure: primary low transverse Episiotomy: none Laceration: none Incision: normal, dry, intact Other procedures: none Discharge diagnosis: IUP at term delivered baby: male Hospital course: uncomplicated section Pt A&O X 3 No c/o voiced VSS FF below umb Lochia scant H&H 03/08 pt is asymptomatic Blood loss due to surgery RX po iron provided. Doing well s/p c/s P : d/c today with instructions RTO 1 week Condition at discharge: Good Disposition: DC-01 TO HOME OR SELFCARE - Discharge Diagnoses (1) delivery delivered Status: Acute Comment: rto 1 week Plan - Discharge Medications Prescriptions: Ibuprofen [Motrin 800 MG tab] 800 mg PO TID PRN #30 tablet PRN Reason: Pain Lidocain2.5%/Prilocai2.5% [Emla] 5 gm TP ONCE #1 tube oxyCODONE /ACETAMINOPHEN [Percocet 5/325 mg] 1 - 2 tab PO Q4HR PRN #30 tablet PRN Reason: Pain - Provider Discharge Summary Activity: routine, no sex for 6 weeks, no heavy lifting 4 weeks, no strenuous exercise Diet: routine Instructions: routine Additional instructions: [] Smoking cessation referral if applicable(refer to patient education folder for contact #) [] Refer to [facility] Booklet Call your doctor immediately for: * Fever > 100.5 * Heavy vaginal bleeding ( >1 pad per hour) * Severe persistent headache * Shortness of breath * Reddened, hot, painful area to leg or breast * Drainage or odor from incision. * Keep incision clean and dry at all times and follow doctor's instructions regarding bathing/showering - Follow up plan Follow up: SARAH CLARKE MD [Primary Care Provider] - 7 Days (Please call [phone] to schedule your postoperative visit in 1 week and your son's circumcision in 1 week. Bring the EMLA cream with you to his visit. DO NOT use at home. Take medications as prescribed. Call with concerns.) Forms: Discharge Signature Page
[2017-02-18 09:20] VITALS: BP 128/80
[2017-02-18] MEDS: PERCOCET 5/325 PO PRN (12:36)
== END 2017-02-18 18:00 | disposition home or self-care (01) | DRG 765 ==
LOC: TRG 06:48 → LD 06:49 → TRG 06:55 → OB 02-16 21:48
PROVIDERS: ADMIT Obstetrics & Gynecology; ATTEND Obstetrics & Gynecology
PROC: 10D00Z1 Extraction of Products of Conception, Low, Open Approach (ICD-10-PCS; principal; 2017-02-16)
DX: O41.03X0 Oligohydramnios, third trimester, not applicable or unspecified (principal); O99.324 Drug use complicating childbirth; O76 Abnormality in fetal heart rate and rhythm complicating labor and delivery; O62.0 Primary inadequate contractions; O99.52 Diseases of the respiratory system complicating childbirth; J45.909 Unspecified asthma, uncomplicated; O99.03 Anemia complicating the puerperium; D64.9 Anemia, unspecified; F12.90 Cannabis use, unspecified, uncomplicated; Z3A.40 40 weeks gestation of pregnancy; Z37.0 Single live birth; Z82.49 Family history of ischemic heart disease and other diseases of the circulatory system; Z83.3 Family history of diabetes mellitus; Z80.3 Family history of malignant neoplasm of breast
CPT/HCPCS: 36415; 59025; 59200; 76815; 85014; 85018; 85027; 86592; 86850; 86900; 86901; 90715; J0595; J0690; J1170; J1885; J2210; J2250; J2270; J2590; J2765; J3010; J7120; J7121